=== PATIENT | female | born 1990 | race Caucasian/White ===

== ENCOUNTER 2019-08-27 07:32 | Emergency (ER) | payer OTHER, SELFPAY ==
[2019-08-27 08:22] LABS: Bilirubin Negative (Negative); Blood, Urine Negative (Negative); Clarity Slightly Cloudy (Clear); Glucose, Urine (Dipstick) Negative (Negative); Leukocyte Small (Negative); Nitrite Negative (Negative); Protein, Urine (Dipstick) Negative (Neg-Trace); Urobilinogen 0.2 mg/dL (Less than 2)
[2019-08-27 08:24] LABS: Pregnancy Test - Urine (BHCG) Negative (Negative); Pregu Control Background? CLEAR/WHITE (CLR/WHITE); Pregu Control Bar Appear? YES (CONTROL BAR); Specific Gravity 1.025 (1.002-1.036)
[2019-08-27 08:27] LABS: Bacteria/HPF Rare-Few HPF (None Seen); RBC/HPF 0-3 HPF (0-3)
[2019-08-27 08:30] LABS: #Basophils 0.1 thou/uL (0.0-0.2); #Lymphocytes 1.8 thou/uL (1.20-3.40); #Monocytes 1.3 thou/uL (0.11-0.59); #Neutrophils 9.1 thou/uL (1.40-6.50); %Basophils 1.2 % (0.0-1.0); %Eosinophils 0.1 % (0.0-10.0); %Lymphocytes 14.6 % (21.0-51.0); %Monocytes 10.5 % (0.0-10.0); %Neutrophils 73.6 % (42.0-75.0); Hemoglobin 13.3 g/dL (12.0-16.0); Mean Corpuscular HGB CONC 33.3 g/dL (32.0-36.0); Mean Corpuscular Hemoglobin 29.9 pg (27.0-31.0); Mean Corpuscular Volume 89.7 fL (78.0-98.0); Mean Platelet Volume 7.1 fL (7.4-10.4); Platelet Count 296 thou/uL (130-400); RBC Distribution Width 11.3 % (11.5-14.5); Red Blood Cell (RBC) Count 4.45 mill/uL (4.20-5.40); White Blood Cell (WBC) Count 12.3 thou/uL (4.8-10.8)
[2019-08-27] MEDS ORDERED: Sodium Chloride 0.9% 1,000 ML ONE (08:33)
[2019-08-27] MEDS ORDERED: Ketorolac Tromethamine 30 MG/ML VIAL ONE (08:35)
[2019-08-27 08:37] LABS: PTT 32.6 SEC (22.9-36.1); Prothrombin Time 12.7 SEC (12.0-14.7)
[2019-08-27 08:47] LABS: ALT (SGPT) 56 U/L (8-55); AST (SGOT) 39 U/L (5-34); Albumin 4.1 g/dL (3.5-5.0); Alcohol Less than 10 mg/dL (Less than 10); Alkaline Phosphatase 96 U/L (40-110); Anion Gap 14 mmol/L (10-20); BUN (Urea Nitrogen) 13 mg/dL (7.0-18.7); Bilirubin, Total 0.3 mg/dL (0.2-1.2); Calc. Creatinine Clearance 0 mL/min (70-130); Calcium 9.6 mg/dL (7.8-10.44); Carbon Dioxide 27 mmol/L (22-29); Chloride 100 mmol/L (98-107); Estimated GFR-MDRD Greater than 90; Globulin 3.5 g/dL (2.4-3.5); Glucose 92 mg/dL (70-105); Lipase 16 U/L (8-78); Potassium 4.3 mmol/L (3.5-5.1); Protein, Total 7.6 g/dL (6.0-8.3); Sodium 137 mmol/L (136-145)
[2019-08-27] MEDS ORDERED: Iopamidol 370 76% 100 ML VIAL ONE (09:00)
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
[2019-08-27] MEDS ORDERED: Lidocaine 1% w/Epinephrine 1:100K 30 ML VIAL ONE (09:46)
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
[2019-08-27] MEDS ORDERED: Triple Antibiotic Oint 1 GM Packet ONE (10:32)
== END 2019-08-27 11:09 | disposition home or self-care (01) ==
LOC: NAV ERS 07:32
DX: S32.049A Unspecified fracture of fourth lumbar vertebra, initial encounter for closed fracture (principal); S50.12XA Contusion of left forearm, initial encounter; S50.11XA Contusion of right forearm, initial encounter; S60.00XA Contusion of unspecified finger without damage to nail, initial encounter; S80.01XA Contusion of right knee, initial encounter; S70.12XA Contusion of left thigh, initial encounter; N75.1 Abscess of Bartholin's gland; F90.9 Attention-deficit hyperactivity disorder, unspecified type; F32.9 Major depressive disorder, single episode, unspecified; Z79.899 Other long term (current) drug therapy; V47.6XXA Car passenger injured in collision with fixed or stationary object in traffic accident, initial encounter
CPT/HCPCS: 56420; 70450; 71045; 72125; 74177; 80053; 80307; 81003; 81015; 81025; 83690; 85025; 85610; 85730; 87070; 87077; 87205; 94760; 96361; 96374; J1885; J2001; J7050; L0120; Q9967